=== PATIENT | female | born 1970 | race Two or more races ===

== ENCOUNTER 2020-02-06 17:20 | Inpatient (IN) | payer SELFPAY ==
[~2020-02-06] VITALS: Ht 154.9 cm; Wt 69.6 kg
[2020-02-06] MEDS ORDERED: ONDANSETRON HCL 4 MG/2 ML VIAL IV ONE ×2 (18:15→20:15)
[2020-02-06] MEDS ORDERED: MORPHINE SULFATE 4 MG/ML SYR/VIAL IV ONE ×2 (18:15→20:15)
[2020-02-06 18:26] LABS: Basophils # (auto) 0.3 10 ^3/uL (0-0.2); Monocytes # (auto) 0.7 10 ^3/uL (0-1.3)
[2020-02-06 18:28] LABS: Basophils % (auto) 1.5 % (0.0-2.0); Eosinophils # (auto) 0.4 10 ^3/uL (0-0.8); Eosinophils % (auto) 2.1 % (0.0-7.0); Lymphocytes # (auto) 1.5 10 ^3/uL (0.4-5.4); Monocytes % (auto) 4.3 % (0.0-12.0); Neutrophils % (auto) 83.1 % (37.0-80.0); Nucleated Red Blood Cells % 0.3 %; Platelet Count (auto) 369 10^3/uL (140-450); Red Cell Distribution Width 13.1 % (11.8-14.3); White Blood Cell 16.8 10^3/uL (4.4-10.8)
[2020-02-06 18:30] LABS: Urine Bacteria FEW /hpf (None Seen); Urine Blood TRACE /uL (Negative); Urine WBC 1 /hpf (0 - 5)
[2020-02-06 19:15] LABS: Hematocrit 38.4 % (36.0-46.0); Hemoglobin 12.9 g/dL (12.2-16.2); Mean Corpuscular Hemoglobin 27.1 pg (28.0-32.0); Mean Corpuscular Hgb Conc. 33.7 g/dL (32.0-36.0); Mean Corpuscular Volume 80.3 fL (80.0-100.0); Red Blood Cells 4.78 10^6/uL (4.0-5.20)
[2020-02-06] MEDS ORDERED: SODIUM CHLORIDE 0.9% 2,000 ML IV ONE (20:15)
[2020-02-06] MEDS ORDERED: metroNIDAZOLE 500MG/100ML 100 ML IV ONE (20:15)
[2020-02-06] MEDS ORDERED: levoFLOXacin 500MG 100 ML IV ONE (20:15)
[2020-02-06 21:09] LABS: Lactic Acid w/Reflex 3.1 mmol/L (0.4-2.0)
[2020-02-06 21:53] LABS: Potassium 3.6 mmol/L (3.5-5.1); Sodium 125 mmol/L (136-145)
[2020-02-06 21:54] LABS: Anion Gap 11 (5-15); BUN/Creatinine Ratio 15.9; Blood Urea Nitrogen 11 mg/dL (7-18); Carbon Dioxide 25 mmol/L (21-32); Chloride 89 mmol/L (98-107); GFR African American 115 mL/min; GFR Non-African American 95 mL/min
[2020-02-06 21:58] LABS: Alkaline Phosphatase 169 U/L (45-117)
[2020-02-06 21:59] LABS: Alanine Aminotransferase 30 U/L (13-56); Aspartate Aminotransferase 20.4 U/L (15-37)
[2020-02-06 22:00] LABS: Bilirubin, Total 0.4 mg/dL (0.2-1.0); Calcium 8.8 mg/dL (8.5-10.1)
[2020-02-06 22:01] LABS: Albumin 3.7 g/dL (3.4-5.0)
[2020-02-06 22:07] LABS: Glucose 465 mg/dL (74-106)
[2020-02-06 22:08] LABS: Amylase 110.4 U/L (25-115)
[2020-02-06 22:10] LABS: Lipase 1365.6 U/L (73-393)
[2020-02-06] MEDS ORDERED: DEXTROSE (50%) 50ML SYRG IV PRN (22:45)
--- NOTE | 2020-02-06 23:49 | NUR ---
MS admit from ER RANDEE SINGH admitted to tele/MS after SBAR received. Patient oriented to Neha jordan RN, unit, room, bed, and unit policies regarding patient care and visiting hours. Patient weighed by bed scale and encouraged to call if they need something. All questions and concerns addressed, patient verbalized understanding. Note: Came per wheelchair awake alert oriented x 4, not in respiratory distress, placed in the bed comfortably, vital signs checked.
[2020-02-06] MEDS: ONDANSETRON HCL 4 MG/2 ML VIAL IV PRN (23:57)
[2020-02-06] MEDS: SODIUM CHLORIDE 0.9% 1,000 ML IV SCH (23:59)
[2020-02-07] VITALS (7 sets, daily range): BP systolic 100–124; BP diastolic 56–73
[2020-02-07] MEDS: MORPHINE SULFATE 4 MG/ML SYR/VIAL IV PRN ×6 (00:16→23:07)
[2020-02-07] MEDS: ACCU-CHEK COMFORT CURVE STRIP VI SCH ×4 (00:17→17:19)
[2020-02-07] MEDS: InsuLIN REG 1unit/0.01ml Soln (100units/ml) SC SCH ×4 (00:20→17:21)
[2020-02-07] MEDS ORDERED: GLIP10TA9 PO (01:06)
[2020-02-07] MEDS ORDERED: FENO145T27 PO (01:06)
[2020-02-07] MEDS: metroNIDAZOLE 500MG/100ML 100 ML IV SCH ×3 (05:38→22:12)
[2020-02-07 06:23] LABS: Basophils # (auto) 0.1 10 ^3/uL (0-0.2); Eosinophils # (auto) 0.2 10 ^3/uL (0-0.8); Eosinophils % (auto) 1.9 % (0.0-7.0); Lymphocytes % (auto) 16.4 % (10.0-50.0); Monocytes # (auto) 0.6 10 ^3/uL (0-1.3); Monocytes % (auto) 5.3 % (0.0-12.0); Neutrophils # (auto) 9.1 10 ^3/uL (1.6-8.6); Neutrophils % (auto) 75.4 % (37.0-80.0); Nucleated Red Blood Cells % 0.1 %; Platelet Count (auto) 307 10^3/uL (140-450); Red Blood Cells 4.29 10^6/uL (4.0-5.20); Red Cell Distribution Width 13.1 % (11.8-14.3); White Blood Cell 12.1 10^3/uL (4.4-10.8)
[2020-02-07 06:25] LABS: Hematocrit 31.1 % (36.0-46.0); Hemoglobin 10.4 g/dL (12.2-16.2); Mean Corpuscular Hemoglobin 26.9 pg (28.0-32.0); Mean Corpuscular Hgb Conc. 33.5 g/dL (32.0-36.0); Mean Corpuscular Volume 80.4 fL (80.0-100.0)
--- NOTE | 2020-02-07 07:28 | NUR ---
Opening Shift Note Assumed care of patient, patient resting with even and non-labored respirations. No S/S of distress/SOB or pain. will continue to monitor for changes Q1hr and PRN.
[2020-02-07 07:42] LABS: Potassium 4.2 mmol/L (3.5-5.1)
[2020-02-07 07:43] LABS: Anion Gap 14.2 (5-15); Carbon Dioxide 22.8 mmol/L (21-32); Glucose 289.2 mg/dL (74-106)
[2020-02-07 07:44] LABS: BUN/Creatinine Ratio 11.1
[2020-02-07 07:47] LABS: Bilirubin, Total 0.4 mg/dL (0.2-1.0); Calcium 7.2 mg/dL (8.5-10.1)
[2020-02-07 07:48] LABS: Albumin 2.9 g/dL (3.4-5.0); Total Protein 5.4 g/dL (6.4-8.2)
[2020-02-07] MEDS: PANTOPRAZOLE 40 MG/10 ML VIAL INJ IV SCH (09:27)
[2020-02-07] MEDS: SODIUM CHLORIDE 0.9% 1,000 ML IV SCH (09:28)
[2020-02-07] MEDS: D5W/LACTATED RINGERS 1,000 ML IV SCH ×3 (10:40→23:35)
[2020-02-07 10:42] LABS: Cholesterol 90 mg/dL (< 200); HDL Cholesterol 10 mg/dL (40-59); Triglycerides 714 mg/dL (< 150)
--- NOTE | 2020-02-07 19:55 | NUR ---
Opening Shift Note Assumed care of patient, awake and alert. No S/S of distress/SOB or pain. Patient made aware of labs in the morning. Instructed on POC and to call for assist PRN, will continue to monitor for changes Q1hr and PRN.
[2020-02-07] MEDS: levoFLOXacin 500MG 100 ML IV SCH (21:26)
--- NOTE | 2020-02-07 23:10 | NUR ---
Patient complained of pain 8/10 abdomen and headache. Administer pain medication PRN
[2020-02-08] MEDS: InsuLIN REG 1unit/0.01ml Soln (100units/ml) SC SCH ×5 (00:15→23:55)
[2020-02-08] MEDS: ACCU-CHEK COMFORT CURVE STRIP VI SCH ×5 (00:16→23:50)
--- NOTE | 2020-02-08 05:00 | NUR ---
temperature of 100.7. cooling measures taken, given ice packs and lower room temperature.
[2020-02-08 05:10] VITALS: BP 98/69
[2020-02-08] MEDS: metroNIDAZOLE 500MG/100ML 100 ML IV SCH ×3 (05:39→21:54)
--- NOTE | 2020-02-08 05:55 | NUR ---
Patient complained of pain 9/10 headache & abdomen. Administer pain medication prn.
[2020-02-08] MEDS: MORPHINE SULFATE 4 MG/ML SYR/VIAL IV PRN ×3 (05:56→23:41)
--- NOTE | 2020-02-08 06:00 | NUR ---
Reassess temperature 98.6
[2020-02-08] MEDS: D5W/LACTATED RINGERS 1,000 ML IV SCH ×3 (06:15→18:19)
--- NOTE | 2020-02-08 07:30 | NUR ---
Patient in bed asleep, no acute distress noted.
[2020-02-08 09:00] VITALS: BP 103/63
--- NOTE | 2020-02-08 09:42 | NUR ---
Mark Persaud came over. ordered to keep patient NPO and given Tylenol for headache. Dr. Kovacs made aware patient has no orders for Tylenol, only on Morphine Sulf Inj for pain. MD to put in order for Tylenol, give with small sips of water.
--- NOTE | 2020-02-08 10:20 | NUR ---
Mark Mattson at bedside. to put in new orders. Patient for possible discharge tomorrow, Wednesday.
[2020-02-08] MEDS: PANTOPRAZOLE 40 MG/10 ML VIAL INJ IV SCH (10:44)
[2020-02-08] MEDS: ACETAMINOPHEN 500 MG TAB PO PRN ×2 (10:45→20:18)
--- NOTE | 2020-02-08 10:45 | NUR ---
Tylenol PO given for headache. Temp = 99.8 F
[2020-02-08 13:00] VITALS: BP 103/59
--- NOTE | 2020-02-08 15:03 | NUR ---
Patient is rubbing her stomach, moaning, stated pain level at 10/10. Morphine Sulf Inj given for severe pain as ordered.
--- NOTE | 2020-02-08 16:28 | NUR ---
Pt speaks [place] and an certified court interpreter was provided in order to obtain information. The certified court interpreter was Contact Center Engineer sheyla. about herself and family. Pt states she has no insurance. Pt is unable to tell Social Workers how much her earns monthly. Pt is independent and using no equipment. Pt will be referred to Dwaine Cortez for follow up on her finances. Addendum: 02/08/20 at 1634 by JOSE VÁSQUEZ SS Amended: Links added.
[2020-02-08 16:47] VITALS: BP 111/61
--- NOTE | 2020-02-08 19:15 | NUR ---
Opening Shift Note Received report from Graciela OLIVARES. Assumed care of patient, awake and alert. No S/S of distress/SOB or pain. Instructed on POC and to call for assist PRN, will continue to monitor for changes Q1hr and PRN.
[2020-02-08] MEDS: levoFLOXacin 500MG 100 ML IV SCH (21:10)
[2020-02-08 22:15] VITALS: BP 99/55
--- NOTE | 2020-02-08 22:15 | NUR ---
Patient's temp is 100.7, Tylenol is not due, ice pack administered. Will continue to monitor.
--- NOTE | 2020-02-08 23:20 | NUR ---
Latest temp is 98.7, continue care.
[2020-02-09] MEDS: D5W/LACTATED RINGERS 1,000 ML IV SCH ×3 (02:15→15:35)
[2020-02-09] MEDS: MORPHINE SULFATE 4 MG/ML SYR/VIAL IV PRN (03:56)
[2020-02-09] MEDS: ONDANSETRON HCL 4 MG/2 ML VIAL IV PRN (04:00)
[2020-02-09 05:30] VITALS: BP 104/60
[2020-02-09 05:30] LABS: Basophils # (auto) 0.1 10 ^3/uL (0-0.2); Basophils % (auto) 0.7 % (0.0-2.0); Eosinophils # (auto) 0.2 10 ^3/uL (0-0.8); Eosinophils % (auto) 1.6 % (0.0-7.0); Hematocrit 32.3 % (36.0-46.0); Hemoglobin 10.9 g/dL (12.2-16.2); Lymphocytes # (auto) 1.5 10 ^3/uL (0.4-5.4); Lymphocytes % (auto) 12.2 % (10.0-50.0); Mean Corpuscular Hemoglobin 27.1 pg (28.0-32.0); Mean Corpuscular Hgb Conc. 33.9 g/dL (32.0-36.0); Mean Corpuscular Volume 80.1 fL (80.0-100.0); Monocytes # (auto) 0.7 10 ^3/uL (0-1.3); Monocytes % (auto) 5.9 % (0.0-12.0); Neutrophils # (auto) 9.5 10 ^3/uL (1.6-8.6); Neutrophils % (auto) 79.6 % (37.0-80.0); Platelet Count (auto) 270 10^3/uL (140-450); Red Blood Cells 4.03 10^6/uL (4.0-5.20); Red Cell Distribution Width 13.4 % (11.8-14.3)
[2020-02-09 05:41] LABS: Albumin 2.3 g/dL (3.4-5.0); Calcium 8.2 mg/dL (8.5-10.1); Potassium 3.4 mmol/L (3.5-5.1)
[2020-02-09 05:42] LABS: BUN/Creatinine Ratio 6.3
[2020-02-09 05:45] LABS: Bilirubin, Total 0.7 mg/dL (0.2-1.0); Total Protein 6.6 g/dL (6.4-8.2)
[2020-02-09] MEDS: metroNIDAZOLE 500MG/100ML 100 ML IV SCH ×2 (05:57→14:20)
[2020-02-09] MEDS: InsuLIN REG 1unit/0.01ml Soln (100units/ml) SC SCH ×2 (05:58→11:39)
[2020-02-09] MEDS: ACCU-CHEK COMFORT CURVE STRIP VI SCH ×2 (05:58→11:10)
[2020-02-09 09:00] VITALS: BP 108/65
[2020-02-09] MEDS: PANTOPRAZOLE 40 MG/10 ML VIAL INJ IV SCH (10:09)
[2020-02-09] MEDS: ACETAMINOPHEN 500 MG TAB PO PRN (10:10)
--- NOTE | 2020-02-09 10:10 | NUR ---
Patient stated she has headache. Tylenol PO given for headache. Temp = 98.3 F.
--- NOTE | 2020-02-09 10:10 | NUR ---
Mark Mattson at bedside. MD ordered Full Liquid Diet then advance diet as tolerated to Soft Diet. MD to discharge the patient today.
[2020-02-09] MEDS ORDERED: GEMFIBROZIL 600 MG TAB PO ONE (10:15)
--- NOTE | 2020-02-09 10:20 | NUR ---
Mark Persaud at bedside. Patient stated she has mild stomach pain. MD ordered to start patient on Clear Liquid. Patient can go home as per GI perspective if able to tolerate food. Patient eating jello at this time, had sips of water.
--- NOTE | 2020-02-09 10:23 | NUR ---
Mark Mattson said patient can go home at 5:00 pm today of patient tolerates Soft Diet.
--- NOTE | 2020-02-09 12:35 | NUR ---
Patient able to tolerate Soft Diet.
[2020-02-09 13:11] VITALS: BP 103/60
[2020-02-09 13:31] VITALS: BP 103/60
--- NOTE | 2020-02-09 14:00 | NUR ---
Temp = 98.2 F.
[2020-02-09] MEDS ORDERED: GEMFIBROZIL 600 MG TAB PO SCH (17:00)
--- NOTE | 2020-02-09 17:20 | NUR ---
Discharge instructions given as ordered. Encourage to follow up with PMD as instructed. All questions and concerns addressed. Patient verbalized understanding. Medication reconciliation form completed and copy given to patient. Home medications held in Pharmacy returned to patient. IV removed with catheter intact, pressure dressing applied. Patient taken to vehicle via wheelchair with all personal belongings, accompanied by staff. Patient waiting for a family member to pick her up. No distress noted at time of departure.
== END 2020-02-09 17:20 | disposition home or self-care (01) | DRG 871 ==
LOC: ER 17:23 → OVERFLOW 17:24 → WEST WING 23:35
PROVIDERS: ADMIT Nurse Practitioner; ATTEND Family Medicine
DX: A41.9 Sepsis, unspecified organism (principal); K85.90 Acute pancreatitis without necrosis or infection, unspecified; E87.1 Hypo-osmolality and hyponatremia; E78.1 Pure hyperglyceridemia; E78.5 Hyperlipidemia, unspecified; E86.0 Dehydration; K29.80 Duodenitis without bleeding; K76.0 Fatty (change of) liver, not elsewhere classified; K82.4 Cholesterolosis of gallbladder; E11.9 Type 2 diabetes mellitus without complications; Z79.899 Other long term (current) drug therapy; Z88.0 Allergy status to penicillin
CPT/HCPCS: 36415; 74176; 76700; 80053; 80061; 81001; 82150; 82962; 83605; 83690; 83735; 85025; 87040; 93005; C9113; G0378; J1815; J1956; J2405; J3490